=== PATIENT | male | born 1940 | race Caucasian/White ===

== ENCOUNTER 2017-05-04 18:24 | Emergency (ER) | payer OTHER ==
[~2017-05-04] VITALS: Ht 170.2 cm; Wt 84.0 kg
[2017-05-04 18:26] VITALS: BP 137/83; PULSE 84; RESP 14; TEMP 98.4; O2SAT 96
[2017-05-04] MEDS ORDERED: ERYTOIN10 LEFT EYE (21:22)
--- NOTE | 2017-05-04 21:22 | PD ---
HPI Chief Complaint: Eye Problems/Injury Time Seen by Provider: 20:54 Travel History International Travel<30 days: No Contact w/Intl Traveler<30days: No Traveled to known affect area: No History of Present Illness HPI Patient is a 76-year-old male presenting to the emergency department for evaluation of a left eye injury. Patient states he hit his left eye on the car door when he was opening it, he believes his glasses caused a laceration. Injury occurred approximately 3 hours prior to arrival. Patient denies any visual changes, eye pain. They presented due to the bleeding and the observed laceration. She denies any loss of consciousness, headache, dizziness. He does not wear contact lenses. PFSH Past Medical History Diabetes: Yes Patient Takes Glucophage: No Diminished Hearing: No Tetanus Vaccination: Unknown Influenza Vaccination: Yes Past Surgical History Thoracic Surgery: Yes (spinal ) Social History Alcohol Use: No Tobacco Use: No Substance Use: No Review of Systems Except as stated in HPI: all other systems reviewed are Neg Eyes: Positive: Redness, Tearing, No: Blurred Vision, Photophobia, Pain, Blind Spots, Visual changes Physical Exam Narrative GENERAL: Well-developed, well-nourished, well-appearing elderly male. Presenting in no acute distress. SKIN: Warm and dry. HEAD: Normocephalic. EYES: No scleral icterus. Clear Tearing. 2mm superficial laceration to left eyelid at the lash line. Fluorescein eye exam revealed no corneal abrasions. Small abrasion noted to the sclera. Moderate conjunctival injection. Extraocular movements are intact. Redness and mild edema noted to the lateral aspect of the left upper eyelid NECK: Supple, trachea midline. No JVD or lymphadenopathy. CARDIOVASCULAR: Regular rate and rhythm without murmurs, gallops, or rubs. RESPIRATORY: Breath sounds equal bilaterally. No accessory muscle use. MUSCULOSKELETAL: No cyanosis, or edema. Data Data Last Documented VS Vital Signs Date Time Temp Pulse Resp B/P (MAP) Pulse Ox O2 Delivery O2 Flow Rate FiO2 05/04/17 18:26 98.4 84 14 137/83 (101) 96 MDM Medical Decision Making Medical Screen Exam Complete: Yes Emergency Medical Condition: Yes Interpretation(s) Vital Signs Date Time Temp Pulse Resp B/P (MAP) Pulse Ox O2 Delivery O2 Flow Rate FiO2 18 18:26 98.4 84 14 137/83 (101) 96 Differential Diagnosis Corneal abrasion versus iritis versus laceration versus contusion versus other Narrative Course Patient is a well-appearing 76-year-old male presenting for evaluation of left eye injury. Patient was also seen and evaluated by my attending physician. There is a small superficial laceration to the lash line of the left eye. It is well approximated, there is no active bleeding. Patient will be placed on erythromycin ointment prophylactically, he will be referred to Dr. Michael Nicolas , they were advised to call her office in the morning to schedule an appointment. They were given strict return to cautious. Patient verbalized understanding of instructions. Patient is stable for discharge. Diagnosis Primary Impression: Eyelid laceration, left Qualified Codes: S01.112A - Laceration without foreign body of left eyelid and periocular area, initial encounter Additional Impressions: Contusion Qualified Codes: S00.12XA - Contusion of left eyelid and periocular area, initial encounter Abrasion Referrals: Laisha Nicolas MD 1 day Call the office in the morning to schedule an appointment, let the office know you were in the emergency department and reffered to her. Patient Instructions: Facial Laceration (ED), General Instructions Additional Instructions: Avoid rubbing eyes Follow-up with Dr. Nicolas in the morning, call the office first thing to schedule an appointment. Inform the office know that you were in the emergency department and were referred to her. Return to emergency department immediately for any new or worsening symptoms as discussed Use medications as directed Med/Other Pt SpecificInfo: Prescription(s) given Scripts Erythromycin Opth Oint (Erythromycin Opth Oint) 5 Mg/Gm Oint 1 APPLIC LEFT EYE QID for Infection, #1 TUBE 0 Refills Prov: Winsome George 05/04/17 Disposition: 01 DISCHARGE HOME Condition: Stable Winsome George May 04, 2017 21:22
== END 2017-05-04 22:01 | disposition home or self-care (01) ==
LOC: NEPD 18:24
DX: S01.112A Laceration without foreign body of left eyelid and periocular area, initial encounter (principal); S00.12XA Contusion of left eyelid and periocular area, initial encounter; E11.9 Type 2 diabetes mellitus without complications; W22.8XXA Striking against or struck by other objects, initial encounter
CPT/HCPCS: 99283